=== PATIENT | female | born 1995 | race Caucasian/White ===

== ENCOUNTER 2020-06-27 19:25 | Emergency (ER) | payer OTHER ==
[2020-06-27 20:08] LABS: BILIRUBIN NEGATIVE (NEGATIVE); BLOOD NEGATIVE Ery/uL (NEGATIVE); CLARITY CLEAR (CLEAR); COLOR YELLOW (YELLOW); GLUCOSE (U) NORMAL (NORMAL); LEUKOCYTES NEGATIVE Leu/uL (NEGATIVE); NITRITE NEGATIVE (NEGATIVE); PROTEIN NEGATIVE (NEGATIVE); UROBILINOGEN 0.2 mg/dL (0.2-1.0); pH 8.5 (5.0-9.0)
[2020-06-27 20:22] LABS: BASOPHIL 0.8 % (0-2); EOSINOPHIL 0.4 % (0-5); HCT 44.7 % (37.0-47.0); HGB 15.2 g/dl (12.5-16.0); LYMPHOCYTE 41.4 % (15-48); MCH 30.3 pg (25.0-31.0); MCV 89.2 fL (78.0-100.0); MONOCYTE 11.1 % (0-12); MPV 10.5 fL (6.0-9.5); NEUTROPHIL 46.3 % (41-80); NRBC 0; PLT 143 K/uL (150-400); RBC 5.01 M/uL (4.20-5.40); RDW 11.8 % (11.5-14.0); WBC 2.4 K/uL (4.0-10.5)
[2020-06-27 20:42] LABS: BUN/CREAT RATIO (CALC) 14.1 RATIO; CREATININE 0.99 mg/dL (0.51-0.95); POTASSIUM 3.4 mmol/L (3.5-5.1)
[2020-06-27] MEDS ORDERED: MEDROL 4MG DOSEP4 MG PO (20:47)
[2020-06-27] MEDS ORDERED: ZPAK PO (20:47)
== END 2020-06-27 20:59 | disposition home or self-care (01) ==
LOC: FER 19:25
PROVIDERS: Emergency Medicine
DX: U07.1 COVID-19 (principal)
CPT/HCPCS: 36415; 71045; 80048; 81003; 85025